=== PATIENT | female | born 1995 | race Caucasian/White ===

== ENCOUNTER 2017-05-14 17:17 | Emergency (ER) | payer MEDICAID ==
[~2017-05-14] VITALS: Ht 170.2 cm; Wt 54.4 kg
[~2017-05-14 17:17] MED LIST: AFRIN15 ML NS; ANTIPYRINE-BENZ10 ML OT; ANTIVERT25 MG PO; BENADRYL25 MG PO; BIRTH CONTROL PILLS; BUTALB-APAP-CA1 EACH PO; CEFDINIR PO; CEFDINIR300 MG PO; CIPRO500 MG PO; CLARITIN10 MG PO; EPIPEN 2-P0.3 MG/0.3 IM; FLEXERIL PO; HYDROCODONE-AP1 EAC6; IBUPROFEN 800800 M1 PO; IRON325 PO; KEFLEX500 MG PO; LORATIDINE 10 M10 M1 PO; MACROBID 100 M100 M2 PO; MEDROLDOSEPACK PO; NAPROSYN500 MG PO; PHENAZOPYRIDIN200 M2 PO; PRED FORTE 1% EY5 M1 OP; ROBAXIN 750 MG750 M1 PO; TRAMADOL 50 MG50 MG PO; TRINATE TABLET1 TAB; ZOFRAN4 MG PO; ZOLOFT50 M1
[2017-05-14] MEDS ORDERED: KEFLEX500 M1 PO (18:46)
[2017-05-14 18:53] VITALS: BP 130/76
== END 2017-05-14 18:54 | disposition home or self-care (01) ==
LOC: M.ERS 17:17
DX: J03.90 Acute tonsillitis, unspecified (principal); Z88.1 Allergy status to other antibiotic agents; Z88.6 Allergy status to analgesic agent; Z88.0 Allergy status to penicillin; Z88.2 Allergy status to sulfonamides; Z91.048 Other nonmedicinal substance allergy status

== ENCOUNTER 2017-06-01 23:46 | Emergency (ER) | payer MEDICAID ==
[~2017-06-01] VITALS: Ht 167.6 cm; Wt 59.0 kg
[~2017-06-01 23:46] MED LIST changes: +KEFLEX500 M1 PO
[2017-06-02] MEDS ORDERED: PREDNISONE 10 M10 M1 PO (00:05)
[2017-06-02 00:35] VITALS: BP 134/77
== END 2017-06-02 00:40 | disposition home or self-care (01) ==
LOC: M.ERS 23:46
DX: R22.0 Localized swelling, mass and lump, head (principal); Z88.1 Allergy status to other antibiotic agents; Z88.6 Allergy status to analgesic agent; Z88.0 Allergy status to penicillin; Z88.2 Allergy status to sulfonamides

== ENCOUNTER 2017-06-03 22:53 | Emergency (ER) | payer MEDICAID ==
[~2017-06-03] VITALS: Ht 170.2 cm; Wt 59.0 kg
[~2017-06-03 22:53] MED LIST changes: +PREDNISONE 10 M10 M1 PO
[2017-06-03 23:36] LABS: URINE BILIRUBIN NEGATIVE (Negative); URINE BLOOD NEGATIVE (Negative); URINE CLARITY CLEAR; URINE COLOR YELLOW; URINE GLUCOSE-RANDOM NEGATIVE (Negative); URINE KETONES NEGATIVE (Negative); URINE LEUKOCYTES-REFLEX NEGATIVE (Negative); URINE NITRITE-REFLEX NEGATIVE (Negative); URINE PROTEIN NEGATIVE (Negative)
[2017-06-03 23:55] LABS: HEMATOCRIT 37.6 % (37.0-47.0); HEMOGLOBIN 12.7 gm/dL (12.0-15.0); MCH 30.3 pg (26.0-34.0); MCHC 33.8 g/dL (28.0-37.0); MCV 89.5 fL (80.0-100.0); MPV 8.7 fl. (7.2-11.1); NUCLEATED RBCS 0 /100WBC; PLATELET COUNT* 295 thou/uL (150-400); RBC 4.21 mil/uL (4.20-5.00); RDW-CV 13.2 % (10.5-14.5); WBC 13.9 thou/uL (4.0-11.0)
[2017-06-04 00:04] LABS: CALCIUM 9.2 mg/dL (8.5-10.1); CREATININE 0.7 mg/dL (0.6-1.3); POTASSIUM 4.1 mmol/L (3.5-5.1)
[2017-06-04 00:09] LABS: ALBUMIN 3.8 g/dL (3.4-5.0); TOTAL BILIRUBIN 0.2 mg/dL (<0.1-1.0); TOTAL PROTEIN 7.7 g/dL (6.4-8.2)
[2017-06-04 00:59] LABS: ABSOLUTE LYMPHOCYTES 1.3 thou/uL (0.8-5.3); ABSOLUTE MONOCYTES 0.3 thou/uL (0.0-1.2); ABSOLUTE NEUTROPHILS 12.4 thou/uL (1.6-8.1); PLATELET ESTIMATE ADEQUATE
[2017-06-04] MEDS ORDERED: CIPROFLOXACIN500 M1 PO (02:00)
[2017-06-04 02:06] VITALS: BP 105/59
== END 2017-06-04 02:12 | disposition home or self-care (01) ==
LOC: M.ERS 22:53
PROVIDERS: Emergency Medicine; Nurse Practitioner Family
DX: N34.2 Other urethritis (principal); Z88.1 Allergy status to other antibiotic agents; Z88.0 Allergy status to penicillin; Z88.6 Allergy status to analgesic agent

== ENCOUNTER 2017-07-25 00:40 | Emergency (ER) | payer OTHER ==
[~2017-07-25] VITALS: Ht 170.2 cm; Wt 59.0 kg
[~2017-07-25 00:40] MED LIST changes: +CIPROFLOXACIN500 M1 PO
[2017-07-25 01:20] LABS: ABSOLUTE BASOPHILS 0.1 thou/uL (0.0-0.2); ABSOLUTE EOSINOPHILS 0.5 thou/uL (0.0-0.7); ABSOLUTE LYMPHOCYTES 3.4 thou/uL (0.8-5.3); ABSOLUTE MONOCYTES 0.9 thou/uL (0.0-1.2); ABSOLUTE NEUTROPHILS 7.9 thou/uL (1.6-8.1); BASOPHILS 0.7 %; EOSINOPHILS 3.7 %; HEMATOCRIT 37.3 % (37.0-47.0); HEMOGLOBIN 12.8 gm/dL (12.0-15.0); LYMPHOCYTES 26.7 %; MCH 29.9 pg (26.0-34.0); MCHC 34.4 g/dL (28.0-37.0); MCV 86.9 fL (80.0-100.0); MONOCYTES 6.9 %; MPV 8.7 fl. (7.2-11.1); NUCLEATED RBCS 0 /100WBC; PLATELET COUNT* 275 thou/uL (150-400); RBC 4.29 mil/uL (4.20-5.00); RDW-CV 13.1 % (10.5-14.5); WBC 12.6 thou/uL (4.0-11.0)
[2017-07-25 01:28] LABS: CALCIUM 9.1 mg/dL (8.5-10.1); CREATININE 0.7 mg/dL (0.6-1.3); POTASSIUM 3.3 mmol/L (3.5-5.1)
[2017-07-25 01:32] LABS: ALBUMIN 3.8 g/dL (3.4-5.0); TOTAL BILIRUBIN 0.3 mg/dL (<0.1-1.0); TOTAL PROTEIN 7.7 g/dL (6.4-8.2)
[2017-07-25 01:43] LABS: URINE BILIRUBIN NEGATIVE (Negative); URINE BLOOD NEGATIVE (Negative); URINE CLARITY CLEAR; URINE COLOR YELLOW; URINE GLUCOSE-RANDOM NEGATIVE (Negative); URINE KETONES NEGATIVE (Negative); URINE LEUKOCYTES-REFLEX NEGATIVE (Negative); URINE NITRITE-REFLEX NEGATIVE (Negative); URINE PROTEIN NEGATIVE (Negative)
[2017-07-25] MEDS ORDERED: BUTALB-APAP-CA1 EACH PO (01:50)
[2017-07-25 02:12] VITALS: BP 108/81
== END 2017-07-25 02:14 | disposition home or self-care (01) ==
LOC: M.ERS 00:40
PROVIDERS: Emergency Medicine
DX: R10.9 Unspecified abdominal pain (principal); R51 Headache; Z88.1 Allergy status to other antibiotic agents; Z88.6 Allergy status to analgesic agent; Z88.0 Allergy status to penicillin; Z88.2 Allergy status to sulfonamides

== ENCOUNTER 2017-08-17 22:46 | Emergency (ER) | payer OTHER ==
[~2017-08-17] VITALS: Ht 170.2 cm; Wt 59.0 kg
[2017-08-17] MEDS ORDERED: MAXITROL EYE DRO5 ML OTIC (23:26)
[2017-08-17 23:36] VITALS: BP 138/84
== END 2017-08-17 23:37 | disposition home or self-care (01) ==
LOC: M.ERS 22:46
DX: B30.8 Other viral conjunctivitis (principal); Z88.1 Allergy status to other antibiotic agents; Z88.6 Allergy status to analgesic agent; Z88.0 Allergy status to penicillin; Z88.2 Allergy status to sulfonamides

== ENCOUNTER 2017-12-04 22:32 | Emergency (ER) | payer OTHER ==
[~2017-12-04] VITALS: Ht 170.2 cm; Wt 72.6 kg
[~2017-12-04 22:32] MED LIST changes: +MAXITROL EYE DRO5 ML OTIC
[2017-12-04] MEDS ORDERED: PROTONIX40 M2 PO (23:03)
[2017-12-04] MEDS ORDERED: BENTYL 10 MG CA10 M1 PO (23:03)
[2017-12-04] MEDS ORDERED: CARAFATE 1 GM TA1 G1 PO (23:28)
[2017-12-04] MEDS ORDERED: ZOFRAN ODT4 MG PO (23:28)
[2017-12-04] MEDS ORDERED: TRAMADOL 50 MG50 MG PO (23:28)
[2017-12-04 23:40] VITALS: BP 109/82
== END 2017-12-04 23:41 | disposition home or self-care (01) ==
LOC: M.ERS 22:32
DX: R10.9 Unspecified abdominal pain (principal); Z88.1 Allergy status to other antibiotic agents; Z88.0 Allergy status to penicillin; Z88.2 Allergy status to sulfonamides; Z88.8 Allergy status to other drugs, medicaments and biological substances

== ENCOUNTER 2018-01-30 21:17 | Emergency (ER) | payer OTHER ==
[~2018-01-30] VITALS: Ht 170.2 cm; Wt 68.0 kg
[~2018-01-30 21:17] MED LIST changes: +BENTYL 10 MG CA10 M1 PO; +CARAFATE 1 GM TA1 G1 PO; +PROTONIX40 M2 PO; +ZOFRAN ODT4 MG PO
[2018-01-30 21:22] VITALS: BP 125/73
[2018-01-30 21:29] LABS: URINE BILIRUBIN NEGATIVE (Negative); URINE BLOOD 3+ (Negative); URINE CLARITY CLEAR; URINE COLOR YELLOW; URINE GLUCOSE-RANDOM NEGATIVE (Negative); URINE KETONES NEGATIVE (Negative); URINE LEUKOCYTES-REFLEX 1+ (Negative); URINE NITRITE-REFLEX NEGATIVE (Negative); URINE PROTEIN TRACE (Negative); URINE SPECIFIC GRAVITY >= 1.030 (1.005-1.030)
[2018-01-30 21:30] LABS: SQUAMOUS >10 Many /LPF (0-3); URINE RBC 3-10 Few /HPF (0-2); URINE WBC-REFLEX 6-15 Few /HPF (0-5)
[2018-01-30 21:31] LABS: BACTERIA-REFLEX None Seen /HPF (None Seen); CASTS None Seen /LPF (None Seen); CRYSTALS None Seen /LPF (None Seen); MUCUS 4-6 Moderate strn/LPF (None Seen)
[2018-01-30] MEDS ORDERED: PYRIDIUM200 MG PO (21:41)
[2018-01-30] MEDS ORDERED: CIPROFLOXACIN500 M1 PO (21:41)
== END 2018-01-30 21:46 | disposition home or self-care (01) ==
LOC: M.ERS 21:17
PROVIDERS: Emergency Medicine
DX: N39.0 Urinary tract infection, site not specified (principal); Z88.1 Allergy status to other antibiotic agents; Z88.6 Allergy status to analgesic agent; Z88.0 Allergy status to penicillin; Z88.2 Allergy status to sulfonamides; Z88.8 Allergy status to other drugs, medicaments and biological substances

== ENCOUNTER 2018-03-01 11:39 | Emergency (ER) | payer OTHER ==
[~2018-03-01] VITALS: Ht 170.2 cm; Wt 77.1 kg
[~2018-03-01 11:39] MED LIST changes: +PYRIDIUM200 MG PO
[2018-03-01 12:16] LABS: URINE BILIRUBIN NEGATIVE (Negative); URINE BLOOD 3+ (Negative); URINE CLARITY CLOUDY; URINE COLOR YELLOW; URINE GLUCOSE-RANDOM NEGATIVE (Negative); URINE KETONES NEGATIVE (Negative); URINE NITRITE-REFLEX NEGATIVE (Negative); URINE PROTEIN TRACE (Negative); URINE SPECIFIC GRAVITY >= 1.030 (1.005-1.030); URINE UROBILINOGEN 0.2 E.U./dl (0.2-1.0)
[2018-03-01 12:18] LABS: URINE LEUKOCYTES-REFLEX 3+ (Negative)
[2018-03-01 12:32] LABS: MUCUS >6 Heavy strn/LPF (None Seen); SQUAMOUS >10 Many /LPF (0-3); URINE WBC-REFLEX >25 Many /HPF (0-5)
[2018-03-01 12:34] LABS: CASTS None Seen /LPF (None Seen); CRYSTALS None Seen /LPF (None Seen); URINE RBC 3-10 Few /HPF (0-2)
[2018-03-01] MEDS ORDERED: PYRIDIUM200 MG PO (12:58)
[2018-03-01] MEDS ORDERED: CIPROFLOXACIN500 M1 PO (12:58)
[2018-03-01 13:20] VITALS: BP 109/56
== END 2018-03-01 13:21 | disposition home or self-care (01) ==
LOC: M.ERS 11:39
PROVIDERS: Personal Emergency Response Attendant
DX: N39.0 Urinary tract infection, site not specified (principal); Z88.1 Allergy status to other antibiotic agents; Z88.0 Allergy status to penicillin; Z88.6 Allergy status to analgesic agent

== ENCOUNTER 2018-03-20 15:33 | Emergency (ER) | payer OTHER ==
[~2018-03-20] VITALS: Ht 170.2 cm; Wt 77.1 kg
[2018-03-20 15:41] VITALS: BP 122/83
[2018-03-20] MEDS ORDERED: TRAMADOL 50 MG50 MG PO (15:43)
[2018-03-20 16:25] LABS: INFLUENZA A ANTIGEN None Detected (None Detect); INFLUENZA B ANTIGEN None Detected (None Detect)
[2018-03-20] MEDS ORDERED: KEFLEX500 M1 PO (16:28)
== END 2018-03-20 16:33 | disposition home or self-care (01) ==
LOC: M.ERS 15:33
PROVIDERS: Nurse Practitioner Family
DX: J02.0 Streptococcal pharyngitis (principal); Z88.1 Allergy status to other antibiotic agents; Z88.6 Allergy status to analgesic agent; Z88.0 Allergy status to penicillin; Z91.048 Other nonmedicinal substance allergy status; Z88.2 Allergy status to sulfonamides

== ENCOUNTER 2018-03-25 21:31 | Emergency (ER) | payer OTHER ==
[~2018-03-25] VITALS: Ht 170.2 cm; Wt 77.1 kg
[2018-03-25 21:34] VITALS: BP 134/79
[2018-03-25] MEDS ORDERED: PROTONIX 20 MG20 M1 PO (21:38)
[2018-03-25] MEDS ORDERED: ULTRAM 50MG TAB50 MG PO (21:43)
== END 2018-03-25 22:18 | disposition home or self-care (01) ==
LOC: M.ERS 21:31
DX: S40.011A Contusion of right shoulder, initial encounter (principal); Z88.1 Allergy status to other antibiotic agents; Z88.6 Allergy status to analgesic agent; Z88.0 Allergy status to penicillin; Z91.048 Other nonmedicinal substance allergy status; Z88.2 Allergy status to sulfonamides; W01.198A Fall on same level from slipping, tripping and stumbling with subsequent striking against other object, initial encounter; Y92.89 Other specified places as the place of occurrence of the external cause; Y93.89 Activity, other specified; Y99.8 Other external cause status

== ENCOUNTER 2018-05-02 00:18 | Emergency (ER) | payer OTHER ==
[~2018-05-02] VITALS: Ht 170.2 cm; Wt 77.1 kg
[~2018-05-02 00:18] MED LIST changes: +PROTONIX 20 MG20 M1 PO; +ULTRAM 50MG TAB50 MG PO
[2018-05-02 02:47] VITALS: BP 99/64
== END 2018-05-02 02:48 | disposition home or self-care (01) ==
LOC: M.ERS 00:18
DX: R51 Headache (principal); R11.2 Nausea with vomiting, unspecified; Z88.0 Allergy status to penicillin; Z88.2 Allergy status to sulfonamides; Z88.1 Allergy status to other antibiotic agents; Z88.6 Allergy status to analgesic agent; Z88.8 Allergy status to other drugs, medicaments and biological substances; Z98.890 Other specified postprocedural states

== ENCOUNTER 2018-06-07 20:49 | Emergency (ER) | payer OTHER ==
[~2018-06-07] VITALS: Ht 170.2 cm; Wt 77.1 kg
[2018-06-07 20:54] VITALS: BP 122/74
[2018-06-07] MEDS ORDERED: NORCO 5-325 TA1 EACH (20:58)
[2018-06-07] MEDS ORDERED: KEFLEX500 M1 PO (21:12)
[2018-06-07] MEDS ORDERED: CIPROFLOXIN HC2.5 M1 OTIC (21:12)
== END 2018-06-07 21:19 | disposition home or self-care (01) ==
LOC: M.ERS 20:49
DX: H10.9 Unspecified conjunctivitis (principal); K02.9 Dental caries, unspecified; Z88.1 Allergy status to other antibiotic agents; Z88.6 Allergy status to analgesic agent; Z88.0 Allergy status to penicillin; Z88.2 Allergy status to sulfonamides; Z88.8 Allergy status to other drugs, medicaments and biological substances

== ENCOUNTER 2018-06-29 21:19 | Emergency (ER) | payer OTHER ==
[~2018-06-29] VITALS: Ht 170.2 cm; Wt 77.1 kg
[~2018-06-29 21:19] MED LIST changes: +CIPROFLOXIN HC2.5 M1 OTIC; +NORCO 5-325 TA1 EACH
[2018-06-29 22:03] LABS: INFLUENZA A ANTIGEN None Detected (None Detect); INFLUENZA B ANTIGEN None Detected (None Detect)
[2018-06-29] MEDS ORDERED: PREDNISONE50 MG PO (23:00)
[2018-06-29] MEDS ORDERED: PROAIR HFA8.5 GM INH (23:00)
[2018-06-29] MEDS ORDERED: AEROCHAMBER MV1 EACH INH (23:01)
[2018-06-29 23:14] VITALS: BP 120/71
== END 2018-06-29 23:16 | disposition home or self-care (01) ==
LOC: M.ERS 21:19
PROVIDERS: Emergency Medicine
DX: R09.1 Pleurisy (principal); Z98.890 Other specified postprocedural states; Z88.0 Allergy status to penicillin; Z88.1 Allergy status to other antibiotic agents; Z88.6 Allergy status to analgesic agent; Z88.2 Allergy status to sulfonamides; Z88.8 Allergy status to other drugs, medicaments and biological substances

== ENCOUNTER 2018-07-24 23:45 | Emergency (ER) | payer OTHER ==
[~2018-07-24] VITALS: Ht 170.2 cm; Wt 77.1 kg
[~2018-07-24 23:45] MED LIST changes: +AEROCHAMBER MV1 EACH INH; +PREDNISONE50 MG PO; +PROAIR HFA8.5 GM INH
[2018-07-24] MEDS ORDERED: ROXICODONE5 MG (23:56)
[2018-07-25 00:18] LABS: ABSOLUTE EOSINOPHILS 0.3 thou/uL (0.0-0.7); ABSOLUTE LYMPHOCYTES 1.6 thou/uL (0.8-5.3); ABSOLUTE MONOCYTES 0.7 thou/uL (0.0-1.2); ABSOLUTE NEUTROPHILS 7.8 thou/uL (1.6-8.1); BASOPHILS 0.3 %; EOSINOPHILS 2.5 %; HEMATOCRIT 37.5 % (37.0-47.0); HEMOGLOBIN 13.1 gm/dL (12.0-15.0); LYMPHOCYTES 15.8 %; MCH 29.9 pg (26.0-34.0); MCHC 34.8 g/dL (28.0-37.0); MCV 85.8 fL (80.0-100.0); MONOCYTES 6.3 %; MPV 8.4 fl. (7.2-11.1); NUCLEATED RBCS 0 /100WBC; PLATELET COUNT* 290 thou/uL (150-400); POLYS 75.1 %; RBC 4.37 mil/uL (4.20-5.00); RDW-CV 13.6 % (10.5-14.5); WBC 10.4 thou/uL (4.0-11.0)
[2018-07-25 00:21] LABS: CALCIUM 8.8 mg/dL (8.5-10.1); CREATININE 0.7 mg/dL (0.6-1.3); POTASSIUM 3.6 mmol/L (3.5-5.1)
[2018-07-25 01:02] LABS: URINE BILIRUBIN NEGATIVE (Negative); URINE BLOOD TRACE (Negative); URINE CLARITY CLEAR; URINE COLOR YELLOW; URINE GLUCOSE-RANDOM NEGATIVE (Negative); URINE KETONES NEGATIVE (Negative); URINE LEUKOCYTES-REFLEX NEGATIVE (Negative); URINE NITRITE-REFLEX NEGATIVE (Negative); URINE PROTEIN NEGATIVE (Negative); URINE SPECIFIC GRAVITY >= 1.030 (1.005-1.030); URINE UROBILINOGEN 0.2 E.U./dl (0.2-1.0)
[2018-07-25] MEDS ORDERED: NORCO 7.5-3251 EACH PO (01:12)
[2018-07-25 01:19] VITALS: BP 107/67
== END 2018-07-25 01:20 | disposition home or self-care (01) ==
LOC: M.ERS 23:45
PROVIDERS: Emergency Medicine
DX: R55 Syncope and collapse (principal); Z88.0 Allergy status to penicillin; Z88.1 Allergy status to other antibiotic agents; Z88.2 Allergy status to sulfonamides; Z88.6 Allergy status to analgesic agent

== ENCOUNTER 2018-08-19 17:24 | Emergency (ER) | payer OTHER ==
[~2018-08-19] VITALS: Ht 170.2 cm; Wt 77.1 kg
[~2018-08-19 17:24] MED LIST changes: +NORCO 7.5-3251 EACH PO; +ROXICODONE5 MG
[2018-08-19 18:11] LABS: ABSOLUTE EOSINOPHILS 0.1 thou/uL (0.0-0.7); ABSOLUTE LYMPHOCYTES 1.6 thou/uL (0.8-5.3); ABSOLUTE MONOCYTES 0.6 thou/uL (0.0-1.2); ABSOLUTE NEUTROPHILS 10.7 thou/uL (1.6-8.1); BASOPHILS 0.2 %; EOSINOPHILS 0.8 %; HEMATOCRIT 36.9 % (37.0-47.0); HEMOGLOBIN 12.8 gm/dL (12.0-15.0); LYMPHOCYTES 12.2 %; MCH 29.9 pg (26.0-34.0); MCHC 34.6 g/dL (28.0-37.0); MCV 86.3 fL (80.0-100.0); MONOCYTES 4.9 %; NUCLEATED RBCS 0 /100WBC; PLATELET COUNT* 259 thou/uL (150-400); POLYS 81.9 %; RBC 4.28 mil/uL (4.20-5.00); RDW-CV 13.7 % (10.5-14.5)
[2018-08-19 18:13] LABS: URINE BILIRUBIN NEGATIVE (Negative); URINE BLOOD TRACE (Negative); URINE CLARITY CLEAR; URINE COLOR YELLOW; URINE GLUCOSE-RANDOM NEGATIVE (Negative); URINE KETONES NEGATIVE (Negative); URINE LEUKOCYTES-REFLEX NEGATIVE (Negative); URINE NITRITE-REFLEX NEGATIVE (Negative); URINE PROTEIN TRACE (Negative); URINE SPECIFIC GRAVITY >= 1.030 (1.005-1.030); URINE UROBILINOGEN 0.2 E.U./dl (0.2-1.0)
[2018-08-19 18:21] LABS: ALBUMIN 3.9 g/dL (3.4-5.0); CREATININE 0.7 mg/dL (0.6-1.3); POTASSIUM 3.4 mmol/L (3.5-5.1); TOTAL BILIRUBIN 0.4 mg/dL (<0.1-1.0); TOTAL PROTEIN 8.1 g/dL (6.4-8.2)
[2018-08-19 18:47] VITALS: BP 128/84
== END 2018-08-19 18:47 | disposition home or self-care (01) ==
LOC: M.ERS 17:24
PROVIDERS: Nurse Practitioner Family
DX: R51 Headache (principal); R11.2 Nausea with vomiting, unspecified; Z88.0 Allergy status to penicillin; Z88.2 Allergy status to sulfonamides; Z88.1 Allergy status to other antibiotic agents; Z88.6 Allergy status to analgesic agent

== ENCOUNTER 2018-10-08 21:24 | Emergency (ER) | payer OTHER ==
[~2018-10-08] VITALS: Ht 170.2 cm; Wt 77.1 kg
[2018-10-08 21:41] LABS: URINE BILIRUBIN NEGATIVE (Negative); URINE BLOOD NEGATIVE (Negative); URINE CLARITY CLEAR; URINE COLOR YELLOW; URINE GLUCOSE-RANDOM NEGATIVE (Negative); URINE KETONES NEGATIVE (Negative); URINE LEUKOCYTES-REFLEX NEGATIVE (Negative); URINE NITRITE-REFLEX NEGATIVE (Negative); URINE PROTEIN NEGATIVE (Negative)
[2018-10-08 22:00] LABS: ABSOLUTE BASOPHILS 0.1 thou/uL (0.0-0.2); ABSOLUTE EOSINOPHILS 0.5 thou/uL (0.0-0.7); ABSOLUTE MONOCYTES 0.7 thou/uL (0.0-1.2); ABSOLUTE NEUTROPHILS 6.8 thou/uL (1.6-8.1); BASOPHILS 0.5 %; EOSINOPHILS 4.1 %; HEMATOCRIT 37.7 % (37.0-47.0); HEMOGLOBIN 12.9 gm/dL (12.0-15.0); LYMPHOCYTES 26.9 %; MCH 29.5 pg (26.0-34.0); MCHC 34.1 g/dL (28.0-37.0); MCV 86.6 fL (80.0-100.0); MONOCYTES 6.7 %; MPV 8.6 fl. (7.2-11.1); NUCLEATED RBCS 0 /100WBC; PLATELET COUNT* 260 thou/uL (150-400); POLYS 61.8 %; RBC 4.36 mil/uL (4.20-5.00); RDW-CV 12.9 % (10.5-14.5)
[2018-10-08 22:13] LABS: CALCIUM 8.9 mg/dL (8.5-10.1); CREATININE 0.7 mg/dL (0.6-1.3); POTASSIUM 3.9 mmol/L (3.5-5.1)
[2018-10-08 22:18] LABS: ALBUMIN 3.6 g/dL (3.4-5.0); TOTAL BILIRUBIN 0.2 mg/dL (<0.1-1.0); TOTAL PROTEIN 7.4 g/dL (6.4-8.2)
[2018-10-08 22:28] VITALS: BP 128/85
== END 2018-10-08 22:28 | disposition home or self-care (01) ==
LOC: M.ERS 21:24
PROVIDERS: Nurse Practitioner Family
DX: R51 Headache (principal); R10.32 Left lower quadrant pain; R42 Dizziness and giddiness; Z88.1 Allergy status to other antibiotic agents; Z88.0 Allergy status to penicillin; Z88.2 Allergy status to sulfonamides; Z88.6 Allergy status to analgesic agent

== ENCOUNTER 2018-10-23 20:36 | Emergency (ER) | payer OTHER ==
[~2018-10-23] VITALS: Ht 170.2 cm; Wt 81.7 kg
[2018-10-23] MEDS ORDERED: HYDROCORTISONE3011 TOP (21:00)
[2018-10-23 21:30] VITALS: BP 128/75
== END 2018-10-23 21:31 | disposition home or self-care (01) ==
LOC: M.ERS 20:36
DX: L25.9 Unspecified contact dermatitis, unspecified cause (principal); Z88.1 Allergy status to other antibiotic agents; Z88.6 Allergy status to analgesic agent; Z88.0 Allergy status to penicillin; Z88.2 Allergy status to sulfonamides; Z91.048 Other nonmedicinal substance allergy status

== ENCOUNTER 2018-12-27 21:25 | Emergency (ER) | payer OTHER ==
[~2018-12-27] VITALS: Ht 170.2 cm; Wt 77.1 kg
[~2018-12-27 21:25] MED LIST changes: +HYDROCORTISONE3011 TOP
[2018-12-27 21:26] VITALS: BP 126/80
== END 2018-12-27 21:53 | disposition home or self-care (01) ==
LOC: M.ERS 21:25
DX: Z48.01 Encounter for change or removal of surgical wound dressing (principal); Z88.1 Allergy status to other antibiotic agents; Z88.6 Allergy status to analgesic agent; Z88.0 Allergy status to penicillin; Z91.048 Other nonmedicinal substance allergy status; Z88.2 Allergy status to sulfonamides

== ENCOUNTER 2019-01-01 16:09 | Emergency (ER) | payer OTHER ==
[~2019-01-01] VITALS: Ht 170.2 cm; Wt 77.1 kg
[2019-01-01 19:28] VITALS: BP 123/69
== END 2019-01-01 19:30 | disposition home or self-care (01) ==
LOC: M.ERS 16:09
DX: R51 Headache (principal); Z88.1 Allergy status to other antibiotic agents; Z88.6 Allergy status to analgesic agent; Z88.0 Allergy status to penicillin; Z91.048 Other nonmedicinal substance allergy status; Z88.2 Allergy status to sulfonamides

== ENCOUNTER 2019-01-23 21:23 | Emergency (ER) | payer OTHER ==
[~2019-01-23] VITALS: Ht 170.2 cm; Wt 77.1 kg
[2019-01-23 21:44] LABS: URINE BILIRUBIN NEGATIVE (Negative); URINE BLOOD 2+ (Negative); URINE CLARITY CLEAR; URINE COLOR YELLOW; URINE GLUCOSE-RANDOM NEGATIVE (Negative); URINE KETONES NEGATIVE (Negative); URINE LEUKOCYTES-REFLEX NEGATIVE (Negative); URINE NITRITE-REFLEX NEGATIVE (Negative); URINE PROTEIN 2+ (Negative); URINE SPECIFIC GRAVITY >= 1.030 (1.005-1.030)
[2019-01-23 21:58] LABS: BACTERIA-REFLEX >30 Many /HPF (None Seen); CRYSTALS None Seen /LPF (None Seen); FINE GRANULAR CASTS 0-3 Few /LPF (None Seen); MUCUS 4-6 Moderate strn/LPF (None Seen); SQUAMOUS 4-10 Moderate /LPF (0-3); URINE RBC >20 Many /HPF (0-2); WBC CLUMPS Few (None Seen)
[2019-01-23] MEDS ORDERED: CIPROFLOXACIN500 M1 PO (22:10)
[2019-01-23] MEDS ORDERED: PYRIDIUM200 MG PO (22:10)
[2019-01-23 22:14] VITALS: BP 135/85
== END 2019-01-23 22:15 | disposition home or self-care (01) ==
LOC: M.ERS 21:23
PROVIDERS: Personal Emergency Response Attendant
DX: N39.0 Urinary tract infection, site not specified (principal)

== ENCOUNTER 2019-02-09 21:49 | Emergency (ER) | payer OTHER ==
[~2019-02-09] VITALS: Ht 170.2 cm; Wt 81.7 kg
[2019-02-09] MEDS ORDERED: NOHOMEMEDICATIONS (22:01)
[2019-02-09] MEDS ORDERED: MOTION RELIEF25 MG PO (23:54)
[2019-02-10] VITALS: BP 136/75
--- NOTE | 2019-02-10 10:30 | EKG ---
[place] [address] ELECTROCARDIOGRAM REPORT Name: SAÚL RUTH 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 : 1995 Requested By: Ayesha Piper Order Number: [id number] Kahlil MD: Yves Mendieta Measurements Intervals [place] Rate: 82 P: 10 DC: 132 QRS: 26 QRSD: 87 T: 6 QT: 381 QTc: 445 Interpretive Statements Sinus rhythm Multiple premature complexes, vent & supraven Borderline T abnormalities, inferior leads No previous ECG available for comparison Electronically Signed On 02-10-2019 10:30:37 CDT by Yves Mendieta [email or web address] <ELECTRONICALLY SIGNED> By: Yves Mendieta MD, [facility] 02/10/19 1030 2216 16 Yves Mendieta MD, FACC /EPI
== END 2019-02-10 00:26 | disposition home or self-care (01) ==
LOC: M.ERS 21:49
DX: J06.9 Acute upper respiratory infection, unspecified (principal); Z88.1 Allergy status to other antibiotic agents; Z88.6 Allergy status to analgesic agent; Z88.0 Allergy status to penicillin; Z91.048 Other nonmedicinal substance allergy status; Z88.2 Allergy status to sulfonamides

== ENCOUNTER 2019-03-10 17:58 | Emergency (ER) | payer OTHER ==
[~2019-03-10] VITALS: Ht 170.2 cm; Wt 81.7 kg
[~2019-03-10 17:58] MED LIST changes: +MOTION RELIEF25 MG PO; +NOHOMEMEDICATIONS
[2019-03-10] MEDS ORDERED: PROTONIX 20 MG20 MG PO (18:09)
[2019-03-10] MEDS ORDERED: DOXYCYCLINE 10100 M1 PO (18:39)
[2019-03-10 18:55] VITALS: BP 118/81
== END 2019-03-10 18:59 | disposition home or self-care (01) ==
LOC: M.ERS 17:58
DX: J02.9 Acute pharyngitis, unspecified (principal); Z98.51 Tubal ligation status; Z88.1 Allergy status to other antibiotic agents; Z88.0 Allergy status to penicillin; Z88.6 Allergy status to analgesic agent; Z88.8 Allergy status to other drugs, medicaments and biological substances

== ENCOUNTER 2019-04-12 18:02 | Emergency (ER) | payer OTHER ==
[~2019-04-12] VITALS: Ht 170.2 cm; Wt 77.1 kg
[~2019-04-12 18:02] MED LIST changes: +DOXYCYCLINE 10100 M1 PO; +PROTONIX 20 MG20 MG PO
[2019-04-12] MEDS ORDERED: PREDNISONE 20 M20 MG PO (18:26)
[2019-04-12 19:17] VITALS: BP 118/78
== END 2019-04-12 19:15 | disposition home or self-care (01) ==
LOC: M.ERS 18:02
DX: J02.9 Acute pharyngitis, unspecified (principal); Z88.1 Allergy status to other antibiotic agents; Z88.6 Allergy status to analgesic agent; Z88.0 Allergy status to penicillin; Z98.51 Tubal ligation status

== ENCOUNTER 2019-04-28 20:12 | Emergency (ER) | payer OTHER ==
[~2019-04-28] VITALS: Ht 170.2 cm; Wt 81.7 kg
[~2019-04-28 20:12] MED LIST changes: +PREDNISONE 20 M20 MG PO
[2019-04-28 21:07] LABS: ABSOLUTE BASOPHILS 0.1 thou/uL (0.0-0.2); ABSOLUTE EOSINOPHILS 0.2 thou/uL (0.0-0.7); ABSOLUTE MONOCYTES 0.8 thou/uL (0.0-1.2); ABSOLUTE NEUTROPHILS 6.4 thou/uL (1.6-8.1); BASOPHILS 1.4 %; EOSINOPHILS 1.9 %; HEMATOCRIT 35.6 % (37.0-47.0); HEMOGLOBIN 12.9 gm/dL (12.0-15.0); LYMPHOCYTES 28.4 %; MCH 31.1 pg (26.0-34.0); MCHC 36.1 g/dL (28.0-37.0); MONOCYTES 7.2 %; MPV 8.7 fl. (7.2-11.1); NUCLEATED RBCS 0 /100WBC; PLATELET COUNT* 251 thou/uL (150-400); POLYS 61.1 %; RBC 4.14 mil/uL (4.20-5.00); RDW-CV 13.3 % (10.5-14.5); WBC 10.5 thou/uL (4.0-11.0)
[2019-04-28 21:16] LABS: URINE BILIRUBIN NEGATIVE (Negative); URINE BLOOD 1+ (Negative); URINE CLARITY CLOUDY; URINE COLOR YELLOW; URINE GLUCOSE-RANDOM NEGATIVE (Negative); URINE KETONES NEGATIVE (Negative); URINE LEUKOCYTES-REFLEX NEGATIVE (Negative); URINE NITRITE-REFLEX NEGATIVE (Negative); URINE PROTEIN NEGATIVE (Negative)
[2019-04-28 21:22] LABS: CALCIUM 8.9 mg/dL (8.5-10.1); CREATININE 0.6 mg/dL (0.6-1.3); POTASSIUM 3.7 mmol/L (3.5-5.1)
[2019-04-28 21:25] LABS: SQUAMOUS 0-3 Few /LPF (0-3); URINE RBC 0-2 Rare /HPF (0-2); URINE WBC-REFLEX 0-5 Rare /HPF (0-5)
[2019-04-28 21:26] LABS: ALBUMIN 3.6 g/dL (3.4-5.0); TOTAL BILIRUBIN 0.3 mg/dL (<0.1-1.0); TOTAL PROTEIN 8.1 g/dL (6.4-8.2)
[2019-04-28 21:26] LABS: AMORPHOUS PHOSPHATES Many /LPF (None Seen); BACTERIA-REFLEX 1-9 Few /HPF (None Seen); CASTS None Seen /LPF (None Seen)
[2019-04-28 21:47] LABS: AMP/METHAMP Negative (Negative); BARBITURATES Negative (Negative); BENZODIAZEPINES Negative (Negative); COCAINE Negative (Negative); METHADONE Negative (Negative); OPIATES Negative (Negative); PCP Negative (Negative); THC Negative (Negative)
[2019-04-28 22:31] VITALS: BP 115/79
--- NOTE | 2019-04-29 12:53 | EKG ---
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: : 1995 Requested By: Adal Ventura Order Number: [id number] MD: Pollo Land Measurements Intervals [place] Rate: 85 P: 41 VA: 127 QRS: 42 QRSD: 83 T: 14 QT: 379 QTc: 451 Interpretive Statements Sinus rhythm Supraventricular bigeminy Compared to ECG 02/09/2019 22:17:48 Atrial premature complex(es) now present T-wave abnormality no longer present Electronically Signed On 04-29-2019 12:53:09 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
== END 2019-04-28 22:34 | disposition home or self-care (01) ==
LOC: M.ERS 20:12
PROVIDERS: Physician Assistant
DX: R53.1 Weakness (principal); R42 Dizziness and giddiness; Z98.51 Tubal ligation status; Z91.048 Other nonmedicinal substance allergy status; Z88.0 Allergy status to penicillin; Z88.1 Allergy status to other antibiotic agents; Z88.2 Allergy status to sulfonamides; Z88.6 Allergy status to analgesic agent

== ENCOUNTER 2019-04-30 19:22 | Emergency (ER) | payer OTHER ==
[~2019-04-30] VITALS: Ht 170.2 cm; Wt 81.7 kg
[2019-04-30 19:52] LABS: URINE BILIRUBIN NEGATIVE (Negative); URINE BLOOD NEGATIVE (Negative); URINE CLARITY CLEAR; URINE COLOR YELLOW; URINE GLUCOSE-RANDOM NEGATIVE (Negative); URINE KETONES NEGATIVE (Negative); URINE LEUKOCYTES-REFLEX NEGATIVE (Negative); URINE NITRITE-REFLEX NEGATIVE (Negative); URINE PROTEIN NEGATIVE (Negative); URINE SPECIFIC GRAVITY 1.015 (1.005-1.030)
[2019-04-30 20:16] LABS: ABSOLUTE BASOPHILS 0.1 thou/uL (0.0-0.2); ABSOLUTE EOSINOPHILS 0.1 thou/uL (0.0-0.7); ABSOLUTE LYMPHOCYTES 2.1 thou/uL (0.8-5.3); ABSOLUTE MONOCYTES 0.6 thou/uL (0.0-1.2); ABSOLUTE NEUTROPHILS 9.1 thou/uL (1.6-8.1); BASOPHILS 0.6 %; EOSINOPHILS 0.5 %; HEMATOCRIT 36.6 % (37.0-47.0); HEMOGLOBIN 12.8 gm/dL (12.0-15.0); LYMPHOCYTES 17.4 %; MCH 29.9 pg (26.0-34.0); MCV 85.6 fL (80.0-100.0); MONOCYTES 5.1 %; MPV 8.7 fl. (7.2-11.1); NUCLEATED RBCS 0 /100WBC; PLATELET COUNT* 255 thou/uL (150-400); POLYS 76.4 %; RBC 4.27 mil/uL (4.20-5.00); RDW-CV 13.1 % (10.5-14.5); WBC 11.9 thou/uL (4.0-11.0)
[2019-04-30 20:25] LABS: CALCIUM 9.5 mg/dL (8.5-10.1); CREATININE 0.6 mg/dL (0.6-1.3); POTASSIUM 3.4 mmol/L (3.5-5.1)
[2019-04-30 20:30] LABS: ALBUMIN 3.9 g/dL (3.4-5.0); TOTAL BILIRUBIN 0.4 mg/dL (<0.1-1.0)
[2019-04-30 20:45] LABS: INFLUENZA A ANTIGEN Negative (Negative); INFLUENZA B ANTIGEN Negative (Negative)
[2019-04-30] MEDS ORDERED: BUTALB-APAP-CA1 EACH PO (21:12)
[2019-04-30 21:29] VITALS: BP 110/65
--- NOTE | 2019-05-01 12:58 | EKG ---
[place] [address] ELECTROCARDIOGRAM REPORT Name: SAÚL RUTH Room: [facility]#: [id number] Admission: 04/30/19 Attend Phys: Discharge: 04/30/19 Date of : [birth year] Report #: [id number] THIS REPORT FOR: //name// [facility] ED Test Date: 2019-04-30 Test Time: 20:23:22 Pat Name: SAÚL RUTH Department: Room: Gender: F [employer]: [place] : 1995 Requested By: Rose Anderson Order Number: [id number] MD: Gene Loja Measurements Intervals [place] Rate: 77 P: -4 VA: 122 QRS: 43 QRSD: 86 T: 1 QT: 412 QTc: 467 Interpretive Statements Sinus rhythm Borderline T abnormalities, diffuse leads Compared to ECG 04/28/2019 20:44:23 T-wave abnormality now present Atrial premature complex(es) no longer present Electronically Signed On 05-01-2019 12:57:47 AUDIO PRODUCTION ENGINEER by Gene Loja [email or web address] <ELECTRONICALLY SIGNED> By: Laureen Loja MD, FACC 05/01/19 1257 22 22 Laureen Loja MD, [facility] /EPI
== END 2019-04-30 21:30 | disposition home or self-care (01) ==
LOC: M.ERS 19:22
PROVIDERS: Emergency Medicine; Nurse Practitioner Family
DX: H81.10 Benign paroxysmal vertigo, unspecified ear (principal); R51 Headache; Z88.1 Allergy status to other antibiotic agents; Z88.0 Allergy status to penicillin; Z88.2 Allergy status to sulfonamides; Z88.6 Allergy status to analgesic agent; Z88.8 Allergy status to other drugs, medicaments and biological substances; Z98.51 Tubal ligation status

== ENCOUNTER 2019-07-07 00:18 | Emergency (ER) | payer OTHER ==
[~2019-07-07] VITALS: Ht 170.2 cm; Wt 77.1 kg
[2019-07-07 01:09] LABS: INFLUENZA A ANTIGEN Negative (Negative); INFLUENZA B ANTIGEN Negative (Negative)
[2019-07-07 01:38] VITALS: BP 131/76
== END 2019-07-07 01:38 | disposition home or self-care (01) ==
LOC: M.ERS 00:18
PROVIDERS: Emergency Medicine
DX: J06.9 Acute upper respiratory infection, unspecified (principal); Z88.1 Allergy status to other antibiotic agents; Z88.0 Allergy status to penicillin; Z88.2 Allergy status to sulfonamides; Z98.51 Tubal ligation status

== ENCOUNTER 2019-09-26 22:02 | Emergency (ER) | payer OTHER ==
[~2019-09-26] VITALS: Ht 170.2 cm; Wt 81.7 kg
[2019-09-26 22:19] LABS: URINE BILIRUBIN NEGATIVE (Negative); URINE BLOOD TRACE (Negative); URINE CLARITY CLEAR; URINE COLOR YELLOW; URINE GLUCOSE-RANDOM NEGATIVE (Negative); URINE KETONES NEGATIVE (Negative); URINE LEUKOCYTES-REFLEX NEGATIVE (Negative); URINE NITRITE-REFLEX NEGATIVE (Negative); URINE PROTEIN NEGATIVE (Negative)
[2019-09-26 22:42] LABS: ABSOLUTE BASOPHILS 0.1 thou/uL (0.0-0.2); ABSOLUTE EOSINOPHILS 0.6 thou/uL (0.0-0.7); ABSOLUTE LYMPHOCYTES 3.8 thou/uL (0.8-5.3); ABSOLUTE NEUTROPHILS 8.7 thou/uL (1.6-8.1); BASOPHILS 0.5 %; EOSINOPHILS 4.3 %; HEMATOCRIT 34.5 % (37.0-47.0); HEMOGLOBIN 12.3 gm/dL (12.0-15.0); LYMPHOCYTES 26.7 %; MCH 30.6 pg (26.0-34.0); MCHC 35.6 g/dL (28.0-37.0); MCV 85.9 fL (80.0-100.0); MONOCYTES 7.2 %; MPV 8.1 fl. (7.2-11.1); NUCLEATED RBCS 0 /100WBC; PLATELET COUNT* 248 thou/uL (150-400); POLYS 61.3 %; RBC 4.02 mil/uL (4.20-5.00); RDW-CV 12.9 % (10.5-14.5); WBC 14.3 thou/uL (4.0-11.0)
[2019-09-26 22:51] LABS: CALCIUM 8.9 mg/dL (8.5-10.1); CREATININE 0.8 mg/dL (0.6-1.3); POTASSIUM 3.3 mmol/L (3.5-5.1)
[2019-09-27 00:21] VITALS: BP 115/74
[2019-09-27] MEDS ORDERED: TRAMADOL 50 MG50 MG PO (00:43)
== END 2019-09-27 00:45 | disposition home or self-care (01) ==
LOC: M.ERS 22:02
PROVIDERS: Emergency Medicine
DX: N83.292 Other ovarian cyst, left side (principal); Z98.51 Tubal ligation status; Z91.048 Other nonmedicinal substance allergy status; Z88.0 Allergy status to penicillin; Z88.1 Allergy status to other antibiotic agents; Z88.2 Allergy status to sulfonamides; Z88.6 Allergy status to analgesic agent

== ENCOUNTER 2020-05-18 21:28 | Emergency (ER) | payer OTHER ==
[~2020-05-18] VITALS: Ht 170.2 cm; Wt 81.7 kg
[~2020-05-18 21:28] MED LIST changes: +MACROBID 100 M100 MG PO
[2020-05-18] MEDS ORDERED: TRAMADOL 50 MG50 MG PO (22:43)
[2020-05-18 22:47] VITALS: BP 120/70
== END 2020-05-18 22:48 | disposition home or self-care (01) ==
LOC: M.ERS 21:28
DX: S49.92XA Unspecified injury of left shoulder and upper arm, initial encounter (principal); Z98.51 Tubal ligation status; Z88.6 Allergy status to analgesic agent; Z88.0 Allergy status to penicillin; Z88.1 Allergy status to other antibiotic agents; Z88.2 Allergy status to sulfonamides; W18.39XA Other fall on same level, initial encounter; Y93.89 Activity, other specified; Y92.89 Other specified places as the place of occurrence of the external cause; Y99.8 Other external cause status

== ENCOUNTER 2020-06-08 09:13 | Emergency (ER) | payer OTHER ==
[~2020-06-08] VITALS: Ht 170.2 cm; Wt 81.7 kg
[2020-06-08 09:55] VITALS: BP 110/58
== END 2020-06-08 09:55 | disposition home or self-care (01) ==
LOC: M.ERS 09:13
DX: R51.9 Headache, unspecified (principal); Z88.1 Allergy status to other antibiotic agents; Z88.0 Allergy status to penicillin; Z88.2 Allergy status to sulfonamides; Z98.51 Tubal ligation status

== ENCOUNTER 2020-06-14 18:40 | Emergency (ER) | payer OTHER ==
[~2020-06-14] VITALS: Ht 170.2 cm; Wt 68.0 kg
[2020-06-14 19:34] LABS: URINE BILIRUBIN NEGATIVE (Negative); URINE BLOOD NEGATIVE (Negative); URINE CLARITY CLEAR; URINE COLOR STRAW; URINE GLUCOSE-RANDOM NEGATIVE (Negative); URINE KETONES NEGATIVE (Negative); URINE LEUKOCYTES-REFLEX NEGATIVE (Negative); URINE NITRITE-REFLEX NEGATIVE (Negative); URINE PROTEIN NEGATIVE (Negative); URINE UROBILINOGEN 0.2 E.U./dl (0.2-1.0)
[2020-06-14] MEDS ORDERED: MECLIZINE HCL25 MG PO (20:04)
[2020-06-14 20:15] VITALS: BP 136/88
== END 2020-06-14 20:15 | disposition home or self-care (01) ==
LOC: M.ERS 18:40
PROVIDERS: Nurse Practitioner Family
DX: G43.909 Migraine, unspecified, not intractable, without status migrainosus (principal); H81.10 Benign paroxysmal vertigo, unspecified ear; Z98.51 Tubal ligation status

== ENCOUNTER 2020-06-19 09:25 | Emergency (ER) | payer OTHER ==
[~2020-06-19] VITALS: Ht 170.2 cm; Wt 68.0 kg
[~2020-06-19 09:25] MED LIST changes: +MECLIZINE HCL25 MG PO
[2020-06-19 10:42] VITALS: BP 106/69
== END 2020-06-19 10:43 | disposition home or self-care (01) ==
LOC: M.ERS 09:25
DX: B34.9 Viral infection, unspecified (principal); Z20.822 Contact with and (suspected) exposure to COVID-19; Z88.1 Allergy status to other antibiotic agents; Z88.0 Allergy status to penicillin; Z88.2 Allergy status to sulfonamides; Z88.6 Allergy status to analgesic agent; Z88.8 Allergy status to other drugs, medicaments and biological substances; Z98.51 Tubal ligation status

== ENCOUNTER 2021-05-02 15:38 | Emergency (ER) | payer OTHER ==
[~2021-05-02] VITALS: Ht 170.2 cm; Wt 81.7 kg
[2021-05-02 16:45] VITALS: BP 136/85
== END 2021-05-02 16:46 | disposition home or self-care (01) ==
LOC: M.ERS 15:38
DX: J06.9 Acute upper respiratory infection, unspecified (principal); Z20.822 Contact with and (suspected) exposure to COVID-19; Z98.51 Tubal ligation status; Z79.899 Other long term (current) drug therapy; Z88.1 Allergy status to other antibiotic agents; Z88.8 Allergy status to other drugs, medicaments and biological substances; Z88.0 Allergy status to penicillin; Z91.048 Other nonmedicinal substance allergy status; Z88.2 Allergy status to sulfonamides

== ENCOUNTER 2021-05-28 20:17 | Emergency (ER) | payer OTHER ==
[~2021-05-28] VITALS: Ht 170.2 cm; Wt 77.1 kg
[2021-05-28 21:34] LABS: URINE BILIRUBIN NEGATIVE (Negative); URINE BLOOD TRACE (Negative); URINE CLARITY CLOUDY; URINE COLOR YELLOW; URINE GLUCOSE-RANDOM NEGATIVE (Negative); URINE KETONES NEGATIVE (Negative); URINE LEUKOCYTES NEGATIVE (Negative); URINE NITRITE NEGATIVE (Negative); URINE PROTEIN NEGATIVE (Negative); URINE UROBILINOGEN 0.2 E.U./dl (0.2-1.0)
[2021-05-28 21:43] LABS: BACTERIA 1-9 Few /HPF (None Seen); CASTS None Seen /LPF (None Seen); SQUAMOUS 0-3 Few /LPF (0-3); URINE RBC 0-2 Rare /HPF (0-2); URINE WBC 0-5 Rare /HPF (0-5)
[2021-05-28 21:44] LABS: AMORPHOUS PHOSPHATES Many /LPF (None Seen)
[2021-05-28 22:37] LABS: ABSOLUTE BASOPHILS 0.1 thou/uL (0.0-0.2); ABSOLUTE EOSINOPHILS 0.8 thou/uL (0.0-0.7); ABSOLUTE LYMPHOCYTES 3.2 thou/uL (0.8-5.3); ABSOLUTE MONOCYTES 0.9 thou/uL (0.0-1.2); ABSOLUTE NEUTROPHILS 8.1 thou/uL (1.6-8.1); BASOPHILS 0.9 %; EOSINOPHILS 5.8 %; HEMATOCRIT 38.8 % (37.0-47.0); HEMOGLOBIN 13.3 gm/dL (12.0-15.0); LYMPHOCYTES 24.2 %; MCH 30.2 pg (26.0-34.0); MCHC 34.2 g/dL (28.0-37.0); MCV 88.3 fL (80.0-100.0); MONOCYTES 7.3 %; MPV 8.1 fl. (7.2-11.1); NUCLEATED RBCS 0 /100WBC; PLATELET COUNT* 278 thou/uL (150-400); POLYS 61.8 %; RDW-CV 13.3 % (10.5-14.5)
[2021-05-28 22:45] LABS: CREATININE 0.8 mg/dL (0.6-1.3); POTASSIUM 3.5 mmol/L (3.5-5.1)
[2021-05-28 22:49] LABS: ALBUMIN 4.1 g/dL (3.4-5.0); TOTAL BILIRUBIN 0.3 mg/dL (<0.1-1.0)
[2021-05-29 01:40] VITALS: BP 111/68
== END 2021-05-29 01:40 | disposition home or self-care (01) ==
LOC: M.ERS 20:17
PROVIDERS: Physician Assistant
DX: R11.0 Nausea (principal); R10.2 Pelvic and perineal pain; Z98.51 Tubal ligation status; Z88.2 Allergy status to sulfonamides; Z88.0 Allergy status to penicillin; Z88.8 Allergy status to other drugs, medicaments and biological substances